=== PATIENT | male | born 1950 | race Caucasian/White ===

== ENCOUNTER 2016-09-02 17:00 | Inpatient (IN) | payer MEDICARE, MEDICAID ==
[~2016-09-02] VITALS: Ht 167.6 cm; Wt 119.3 kg
[~2016-09-02 17:00] MED LIST: ACET-868 PO; ALBU2.5V12 IH; DOCU-25 PO; IPRA0.2S9 IH; MAGN400O6 PO; MELA5TAB PO
[2016-09-02] MEDS ORDERED: ACETAMINOPHEN 325 MG TABLET PO STA (17:28)
[2016-09-02] MEDS ORDERED: IV NS 0.9% 1,000 ML BAG IV ONE ×2 (17:30→20:30)
[2016-09-02] MEDS ORDERED: ACETAMINOPHEN ES 500 MG TABLET ONE (17:39)
[2016-09-02] MEDS ORDERED: IV SET PRIMARY PUMP SET 1 EA INFUS.SET MC ONE ×2 (17:39→22:58)
[2016-09-02] MEDS ORDERED: IV NS 0.9% 1,000 ML ONE ×3 (17:39→22:57)
[2016-09-02 18:02] LABS: BASOPHILS % (AUTO) 0.2 % (0.0-2.0); DIFF TOTAL % 100 %; HEMATOCRIT 34 % (39-51); HEMOGLOBIN 11.2 g/dL (13.5-17.5); LYMPHOCYTES # (AUTO) 1.1 /CMM (0.8-4.8); LYMPHOCYTES % (AUTO) 12.7 % (20.0-44.0); MEAN CORPUSCULAR HEMOGLOBIN 27 PG (26.0-33.0); MEAN CORPUSCULAR HGB CONC 33 g/dl (31.0-36.0); MEAN CORPUSCULAR VOLUME 82 fL (80-96); MONOCYTES # (AUTO) 0.5 /CMM (0.1-1.30); NEUTROPHILS # (AUTO) 7.3 /CMM (1.8-8.9); NEUTROPHILS % (AUTO) 81.1 % (43.0-81.0); PLATELET COUNT (AUTO) 188 /CMM (150-450); RED BLOOD CELL COUNT(AUTO) 4.12 MIL/uL (4.5-6.0)
[2016-09-02 18:16] LABS: ANION GAP 16 (5-14); CALCIUM, SERUM 8.7 mg/dL (8.5-10.1); CARBON DIOXIDE 26 mmol/L (21-32); CHLORIDE 105 mmol/L (98-107); CREATININE 1.3 mg/dL (0.6-1.3); GFR 56 mL/min (>60); GLUCOSE 123 mg/dL (74-106); POTASSIUM 4.5 mmol/L (3.5-5.1); SODIUM SERUM 142 mmol/L (136-145); UREA NITROGEN, BLOOD 19 mg/dL (7-18)
[2016-09-02 18:18] LABS: TROPONIN I < 0.017 ng/mL (0.00-0.056)
[2016-09-02 18:21] LABS: ACETAMINOPHEN 1 ug/ml (10-30); ALANINE AMINOTRANSFERASE 22 U/L (12-78); ALBUMIN 3.2 g/dL (3.4-5.0); ASPARTATE AMINOTRANSFERASE 18 U/L (15-37); BILIRUBIN,DIRECT 0.1 mg/dL (0.0-0.2); BILIRUBIN,TOTAL 0.2 mg/dL (0.2-1.0); INDIRECT BILIRUBIN 0.1 mg/dL (0.0-1.1); TOTAL PROTEIN, SERUM 6.8 g/dL (6.4-8.2)
[2016-09-02 18:22] LABS: INR 1.01 (0.87-1.13); PROTHROMBIN TIME 10.9 SECS (9.5-12.7); SALICYLATE 1.8 mg/dL (2.8-20.0)
[2016-09-02 18:46] LABS: *LACTIC ACID REFLEX FLAG YES
[2016-09-02 19:25] LABS: KETONES,URINE TRACE (NEGATIVE); LEUKOCYTE ESTERASE ,URINE NEGATIVE (NEGATIVE)
[2016-09-02 19:27] LABS: ADD UA MICROSCOPIC YES
[2016-09-02 19:34] LABS: ADD URINE CULTURE NO; RBC,URINE 0-2 /HPF (0-2); WBC,URINE 0-2 /HPF (0-3)
[2016-09-02 19:37] LABS: CANNABINOID, URINE NEGATIVE (NEGATIVE); PHENCYCLIDINE SCREEN,URINE NEGATIVE (NEGATIVE)
[2016-09-02 19:46] LABS: CREATINE KINASE MB 3.5 ng/mL (0-3.6)
[2016-09-02] MEDS ORDERED: CEFTRIAXONE 1GM BAG (ER ONLY) 100 ML IV ONE (20:17)
[2016-09-02] MEDS ORDERED: IV SET PRIMARY 1 EA INFUS.SET MC ONE ×2 (20:17→20:57)
[2016-09-02] MEDS ORDERED: CEFTRIAXONE 2 G in IV D5W 100 ML IV SCH (20:30)
[2016-09-02] MEDS ORDERED: CEFTRIAXONE 2 G in IV D5W 100 ML IV ONE (21:00)
[2016-09-02 22:00] VITALS: BP 132/76
[2016-09-02] MEDS ORDERED: ONDANSETRON HCL/PF 4 MG/2 ML VIAL IVP PRN (22:00)
[2016-09-02] MEDS ORDERED: Z GUARD REMEDY 2 OZ OINT TP PRN (22:00)
[2016-09-02] MEDS ORDERED: ZOLPIDEM TARTRATE 5 MG TABLET PO PRN (22:00)
[2016-09-02] MEDS ORDERED: MAG HYDROX/AL HYDROX/SIMETH 30 ML UDC PO PRN (22:00)
[2016-09-02] MEDS ORDERED: MAGNESIUM HYDROXIDE 30 ML UDC PO PRN (22:00)
[2016-09-02] MEDS ORDERED: ACETAMINOPHEN 325 MG TABLET PO PRN (22:00)
[2016-09-02] MEDS ORDERED: ENOXAPARIN SODIUM 40 MG/0.4 ML DISP.SYRIN SQ SCH (22:00)
[2016-09-02] MEDS ORDERED: HYDROCODONE/APAP 5/325MG 1 EACH TABLET PO PRN (22:00)
[2016-09-02] MEDS ORDERED: ENOXAPARIN SODIUM 40 MG/0.4 ML DISP.SYRIN SQ ONE (22:47)
[2016-09-02] MEDS: IV NS 0.9% 1,000 ML IV PRN (23:12)
[2016-09-03] VITALS (8 sets, daily range): BP systolic 104–132; BP diastolic 65–88
[2016-09-03] MEDS ORDERED: PIPERACILLIN /TAZOBACTAM 3.375 G in IV D5W 100 ML IV SCH ×2
[2016-09-03] MEDS ORDERED: PIPERACILLIN /TAZOBACTAM 3.375 G VIAL IV ONE (00:58)
[2016-09-03] MEDS ORDERED: SECONDARY IV SET 1 EA INFUS.SET MC ONE (00:58)
[2016-09-03] MEDS ORDERED: IV D5W 100 ML IV ONE (00:58)
[2016-09-03] MEDS ORDERED: IPRATROPIUM NEB FS 0.5 MG/2.5 ML AMPUL.NEB IH PRN (02:00)
[2016-09-03] MEDS ORDERED: ALBUTEROL FS 2.5 MG/0.5 ML VIAL.NEB IH PRN (02:00)
[2016-09-03] MEDS ORDERED: BISA-79 PO (04:01)
[2016-09-03] MEDS ORDERED: DIVA500T54 PO (04:01)
[2016-09-03] MEDS ORDERED: RISP0.5T20 PO (04:01)
[2016-09-03] MEDS ORDERED: LORA-258 PO (04:01)
[2016-09-03] MEDS ORDERED: NA P133E RC (04:01)
[2016-09-03] MEDS ORDERED: ESCI20TA PO (04:10)
[2016-09-03] MEDS ORDERED: NA PHOS,M-B/NA PHOS,DI-BA 1 EA ENEMA RC PRN (04:30)
[2016-09-03] MEDS ORDERED: BISACODYL (5 MG) 5 MG TABLET.DR PO PRN (04:30)
[2016-09-03] MEDS ORDERED: LORAZEPAM 0.5 MG TABLET PO PRN (04:30)
[2016-09-03 08:35] LABS: BASOPHILS % (AUTO) 0.1 % (0.0-2.0); DIFF TOTAL % 100 %; EOSINOPHILS % (AUTO) 0.2 % (0.0-6.0); HEMATOCRIT 31 % (39-51); HEMOGLOBIN 10.4 g/dL (13.5-17.5); LYMPHOCYTES # (AUTO) 1.7 /CMM (0.8-4.8); LYMPHOCYTES % (AUTO) 16.8 % (20.0-44.0); MEAN CORPUSCULAR HEMOGLOBIN 28 PG (26.0-33.0); MEAN CORPUSCULAR HGB CONC 34 g/dl (31.0-36.0); MEAN CORPUSCULAR VOLUME 83 fL (80-96); MONOCYTES # (AUTO) 0.8 /CMM (0.1-1.30); MONOCYTES % (AUTO) 7.7 % (2.0-12.0); NEUTROPHILS # (AUTO) 7.7 /CMM (1.8-8.9); NEUTROPHILS % (AUTO) 75.2 % (43.0-81.0); PLATELET COUNT (AUTO) 158 /CMM (150-450); RED BLOOD CELL COUNT(AUTO) 3.75 MIL/uL (4.5-6.0); WHITE BLOOD COUNT (AUTO) 10.3 K/uL (4.3-11.0)
[2016-09-03 09:48] LABS: CREATINE KINASE MB 2.8 ng/mL (0-3.6)
[2016-09-03 10:56] LABS: ALBUMIN 2.8 g/dL (3.4-5.0); BILIRUBIN,TOTAL 0.3 mg/dL (0.2-1.0); TOTAL PROTEIN, SERUM 6.1 g/dL (6.4-8.2)
[2016-09-03 11:04] LABS: POTASSIUM 4.1 mmol/L (3.5-5.1)
[2016-09-03] MEDS: PANTOPRAZOLE 40 MG VIAL IV SCH (12:06)
[2016-09-03] MEDS: risperiDONE 1 MG TABLET PO SCH (12:06)
[2016-09-03] MEDS: DOCUSATE SODIUM 100 MG CAPSULE PO SCH ×2 (12:07→22:03)
[2016-09-03] MEDS: DIVALPROEX SODIUM 500 MG TABLET.DR PO SCH ×2 (12:07→22:03)
[2016-09-03] MEDS: ESCITALOPRAM OXALATE (10 MG) 10 MG TABLET PO SCH (12:07)
[2016-09-03] MEDS: IV NS 0.9% 1,000 ML IV PRN (12:08)
[2016-09-03] MEDS: VANCOMYCIN 1.25 GM in IV D5W 500 ML IV SCH ×2 (13:51→22:02)
[2016-09-03] MEDS ORDERED: FEE PK DOSING 1 MIN EA MC ONE (20:18)
[2016-09-03] MEDS ORDERED: Medication Not On Formulary EA (Melatonin 5 MG) PO SCH (22:00)
[2016-09-03] MEDS: ENOXAPARIN SODIUM 40 MG/0.4 ML DISP.SYRIN SQ SCH (22:05)
[2016-09-04 04:00] VITALS: BP 123/72
[2016-09-04 08:00] VITALS: BP 110/69
[2016-09-04 08:20] LABS: POTASSIUM 3.8 mmol/L (3.5-5.1)
[2016-09-04] MEDS: PANTOPRAZOLE 40 MG VIAL IV SCH (08:59)
[2016-09-04] MEDS: VANCOMYCIN 1.25 GM in IV D5W 500 ML IV SCH ×2 (08:59→20:51)
[2016-09-04] MEDS: ESCITALOPRAM OXALATE (10 MG) 10 MG TABLET PO SCH (09:00)
[2016-09-04] MEDS: DIVALPROEX SODIUM 500 MG TABLET.DR PO SCH ×2 (09:00→16:21)
[2016-09-04] MEDS: risperiDONE 1 MG TABLET PO SCH (09:00)
[2016-09-04] MEDS: DOCUSATE SODIUM 100 MG CAPSULE PO SCH ×2 (09:00→20:51)
[2016-09-04 12:00] VITALS: BP 110/61
[2016-09-04] MEDS ORDERED: Z GUARD REMEDY 2 OZ OINT TP PRN (12:30)
[2016-09-04 16:00] VITALS: BP_SYST 110; BP_SYST 115; BP_DIAS 55; BP_DIAS 61
[2016-09-04 16:20] VITALS: BP 115/55
[2016-09-04] MEDS: IV NS 0.9% 1,000 ML IV PRN (16:21)
[2016-09-04] MEDS: Z GUARD REMEDY 2 OZ OINT TP SCH (16:21)
[2016-09-04 20:00] VITALS: BP_SYST 111; BP_SYST 116; BP_DIAS 69
[2016-09-04] MEDS: ENOXAPARIN SODIUM 40 MG/0.4 ML DISP.SYRIN SQ SCH (20:53)
[2016-09-05] VITALS: BP 128/78
[2016-09-05 04:00] VITALS: BP 125/75
[2016-09-05 06:57] VITALS: BP 133/80
[2016-09-05 08:33] VITALS: BP 122/78
[2016-09-05] MEDS: DIVALPROEX SODIUM 500 MG TABLET.DR PO SCH (08:40)
[2016-09-05] MEDS: ESCITALOPRAM OXALATE (10 MG) 10 MG TABLET PO SCH (08:40)
[2016-09-05] MEDS: PANTOPRAZOLE 40 MG VIAL IV SCH (08:40)
[2016-09-05] MEDS: risperiDONE 1 MG TABLET PO SCH (08:40)
[2016-09-05] MEDS: Z GUARD REMEDY 2 OZ OINT TP SCH (08:40)
[2016-09-05] MEDS: DOCUSATE SODIUM 100 MG CAPSULE PO SCH (08:40)
[2016-09-05] MEDS: VANCOMYCIN 1.25 GM in IV D5W 500 ML IV SCH (09:08)
[2016-09-05 10:23] LABS: CALCIUM, SERUM 7.9 mg/dL (8.5-10.1); CREATININE 1.1 mg/dL (0.6-1.3)
[2016-09-05 10:28] LABS: POTASSIUM 3.9 mmol/L (3.5-5.1)
[2016-09-05 12:08] VITALS: BP 117/73
== END 2016-09-05 15:31 | DRG 871 ==
LOC: ER 17:02 → TELE 20:20 → MED 09-05 13:16
PROVIDERS: ADMIT Family Medicine; ATTEND Family Medicine
DX: A41.9 Sepsis, unspecified organism (principal); E43 Unspecified severe protein-calorie malnutrition; G93.40 Encephalopathy, unspecified; Z68.41 Body mass index [BMI] 40.0-44.9, adult; J44.9 Chronic obstructive pulmonary disease, unspecified; E78.5 Hyperlipidemia, unspecified; F32.9 Major depressive disorder, single episode, unspecified; F41.9 Anxiety disorder, unspecified; G20 Parkinson's disease; J45.909 Unspecified asthma, uncomplicated; K21.9 Gastro-esophageal reflux disease without esophagitis; Z85.828 Personal history of other malignant neoplasm of skin; F02.80 Dementia in other diseases classified elsewhere, unspecified severity, without behavioral disturbance, psychotic disturbance, mood disturbance, and anxiety; R65.20 Severe sepsis without septic shock; F03.90 Unspecified dementia, unspecified severity, without behavioral disturbance, psychotic disturbance, mood disturbance, and anxiety
CPT/HCPCS: 36415; 70450-TC; 71010-TC; 80048-TC; 80053-TC; 80076-TC; 80202-TC; 80305; 81000-TC; 82550-TC; 82553-TC; 83605-TC; 83735-TC; 84100-TC; 84484-TC; 85025-TC; 85730-TC; 87040-TC; 87081-TC; 87086-TC; 87400; A4606; C9113; G6038-TC; G6039-TC; G6040-TC; J0696; J1650; J2543; J3370; J7030; J7060; Z7610